=== PATIENT | male | born 1990 | race Caucasian/White ===

== ENCOUNTER 2017-09-09 23:10 | Emergency (ER) | payer SELFPAY ==
[2017-09-09 23:11] VITALS: BMI 26.4
[2017-09-09 23:36] VITALS: BP 130/91; PULSE 92; RESP 16; TEMP 98.2; O2SAT 100
[2017-09-09] MEDS ORDERED: Sodium Chloride 0.9% 1,000 ML IV STA (23:55)
--- NOTE | 2017-09-10 00:04 | ED PDOC ---
HPI: Abdomen Time Seen by Provider: 09/09/17 23:56 Chief Complaint (Nursing): Abdominal Pain History Per: Patient Additional Complaint(s): 27 yo M with PMH of Anxiety presents to ED c/o Left side abd/thorax squeezing pain, 8/10, since 3 days, radiated to back, worse with movement, no alleviating factors. 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 He reports previous similar event after a football game where hi was beaten. He doesnt take any medication for pain. He denies recent fever/N/V no other abdominal or chest pain, no sob, palpitations. Past Medical History Vital Signs: Last Vital Signs Temp 98.2 F 09/09/17 23:33 Pulse 92 H 09/09/17 23:33 Resp 16 09/09/17 23:33 BP 130/91 H 09/09/17 23:33 Pulse Ox 100 09/10/17 03:44 - Medical History PMH: Anxiety, Migraine Denies: Depression, Diabetes, Hepatitis, HIV, HTN, Chronic Kidney Disease, Seizures, Sexually Transmitted Disease - Family History Family History: States: No Known Family Hx - Immunization History Hx Tetanus Toxoid Vaccination: Yes - Home Medications Home Medications: Ambulatory Orders Medication Instructions Recorded Alprazolam [Xanax] 0.5 mg PO DAILY 05/24/15 Ciprofloxacin HCl [Cipro] 500 mg PO BID #20 tab 05/24/15 Metronidazole [Flagyl] 500 mg PO TID #30 tab 05/24/15 Cyclobenzaprine [Cyclobenzaprine 10 mg PO TID PRN #15 tab 09/10/17 HCl] - Allergies Allergies/Adverse Reactions: Allergies Allergy/AdvReac Type Severity Reaction Status Date / Time sulfamethoxazole Allergy RASH Verified 09/09/17 23:37 [From Bactrim] trimethoprim [From Bactrim] Allergy RASH Verified 09/09/17 23:37 Review of Systems ROS Statement: Except As Marked, All Systems Reviewed And Found Negative Physical Exam - Reviewed Nursing Documentation Reviewed: Yes Vital Signs Reviewed: Yes - Physical Exam Head Exam: Positive for: NORMAL INSPECTION Skin: Positive for: Normal Color, Warm, Dry Eye Exam: Positive for: EOMI, PERRL. Negative for: Nystagmus Neck: Positive for: Supple Cardiovascular/Chest: Positive for: Regular Rate, Rhythm, Other ( 8-9 ribs tenderness on palpation, no bruises or rash noted). Negative for: Murmur, Bradycardia, Tachycardia Respiratory: Positive for: Normal Breath Sounds. Negative for: Rales, Rhonchi, Wheezing Gastrointestinal/Abdominal: Positive for: Bowel Sounds, Soft. Negative for: Tenderness Back: Negative for: L CVA Tenderness, R CVA Tenderness Extremity: Positive for: Normal ROM. Negative for: Calf Tenderness Neurologic/Psych: Positive for: Alert, process stripper II-XII, Oriented - Laboratory Results Result Diagrams: 09/10/17 00:20 09/10/17 00:20 - ECG O2 Sat by Pulse Oximetry: 100 - Progress ED Course And Treament: CBC CMP Creatine phos troponin EKG CXR Toradol 15mg IV once. Reeval Reeval 01:40 Patient still with pain. Flexeril 10mg PO once Reeval 03:42 Patient feels much better, no pain at this time D/C home. Disposition - Clinical Impression Clinical Impression: Chest wall pain - Patient ED Disposition Is Patient to be Admitted: No - Disposition Disposition: Routine/Home Disposition Time: 03:44 Condition: IMPROVED Prescriptions: Cyclobenzaprine [Cyclobenzaprine HCl] 10 mg PO TID PRN #15 tab PRN Reason: Muscle Pain Instructions: Costochondritis, Chest Pain (DC), Costochondritis (DC) Forms: [facility] (Frisian) Print Language: KINYARWANDA - POA Present On Arrival: None
[2017-09-10 00:30] LABS: BASO # 0.1 K/uL (0.0-0.2); BASO % 0.8 % (0.0-2.0); EOS # 0.1 K/uL (0.0-0.7); EOS % 1.4 % (0.0-4.0); HEMOGLOBIN 14.9 g/dL (12.0-18.0); LYMPH # 2.5 K/uL (1.0-4.3); LYMPH % 27.8 % (20.0-40.0); MEAN CELL VOLUME 92.5 fl (80.0-94.0); MEAN CORPUSCULAR HGB CONC 34.6 g/dL (33.0-37.0); MEAN PLATELET VOLUME 8.8 fl (7.2-11.7); MONO # 0.5 K/uL (0.0-0.8); MONO % 5.4 % (0.0-10.0); NEUT # 5.9 K/uL (1.8-7.0); NEUT % 64.6 % (50.0-75.0); NRBC % 0.1 % (0.0-0.0); RBC 4.65 Mil/uL (4.40-5.90); RED CELL DISTRIBUTION WIDTH 13.3 % (11.5-14.5); WHITE BLOOD COUNT 9.2 K/uL (4.8-10.8)
[2017-09-10 00:41] LABS: ALB/GLOB RATIO 1.5 (1.0-2.1); ALBUMIN 4.4 g/dL (3.5-5.0); ALT/SGPT 46 U/L (21-72); AST/SGOT 27 U/L (17-59); BLOOD UREA NITROGEN 16 mg/dl (9-20); CALCIUM 9.4 mg/dL (8.4-10.2); GFR AFRICAN-AMERICAN > 60; GFR NON-AFRICAN AMERICAN > 60
--- NOTE | 2017-09-10 09:15 | RAD ---
HISTORY: pain COMPARISON: No prior. TECHNIQUE: Chest PA and lateral FINDINGS: LUNGS: No active pulmonary disease. PLEURA: No significant pleural effusion identified. No pneumothorax apparent. CARDIOVASCULAR: Normal. OSSEOUS STRUCTURES: No significant abnormalities. VISUALIZED UPPER ABDOMEN: Normal. OTHER FINDINGS: None. IMPRESSION: No acute cardiopulmonary disease appreciated.
== END 2017-09-10 04:16 | disposition home or self-care (01) ==
LOC: H.ER 23:10
DX: R07.89 Other chest pain (principal); F41.9 Anxiety disorder, unspecified
CPT/HCPCS: 71046; 80053; 82550; 84484; 85025; 96361; 96374; 99282; J1885; J7040

== ENCOUNTER 2018-02-03 12:41 | Emergency (ER) | payer SELFPAY ==
[2018-02-03 12:42] VITALS: BMI 26.4
[2018-02-03 12:52] VITALS: O2SAT 98
--- NOTE | 2018-02-03 13:18 | ED PDOC ---
HPI: Back Time Seen by Provider: 02/03/18 12:59 Chief Complaint (Nursing): Abdominal Pain Chief Complaint (Provider): Back Pain History Per: Patient History/Exam Limitations: no limitations Onset/Duration Of Symptoms: Days (x2) Current Symptoms Are (Timing): Still Present Additional Complaint(s): 27 year old male presents to the ED for evaluation of mid left sided back pain radiating to the front onset two days ago, which worsens when turning or with deep inspirations. 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 Otherwise, denies shortness of breath and cough. PMD: none provided Past Medical History Reviewed: Historical Data, Nursing Documentation, Vital Signs Vital Signs: Last Vital Signs Temp 99 F 02/03/18 12:48 Pulse 92 H 02/03/18 12:48 Resp 20 02/03/18 12:48 BP 118/74 02/03/18 12:48 Pulse Ox 98 02/03/18 12:48 - Medical History PMH: Anxiety, Back Problems, Migraine Denies: Depression, Diabetes, Hepatitis, HIV, HTN, Chronic Kidney Disease, Seizures, Sexually Transmitted Disease - Surgical History Surgical History: No Surg Hx - Family History Family History: States: Unknown Family Hx - Social History Current smoker - smoking cessation education provided: No Alcohol: Social Drugs: Denies - Immunization History Hx Tetanus Toxoid Vaccination: Yes - Home Medications Home Medications: Ambulatory Orders Medication Instructions Recorded Alprazolam [Xanax] 0.5 mg PO DAILY 05/24/15 Ciprofloxacin HCl [Cipro] 500 mg PO BID #20 tab 05/24/15 Metronidazole [Flagyl] 500 mg PO TID #30 tab 05/24/15 Cyclobenzaprine [Cyclobenzaprine 10 mg PO TID PRN #15 tab 09/10/17 HCl] Cyclobenzaprine [Cyclobenzaprine 10 mg PO TID #10 tab 02/03/18 HCl] Naproxen [Naprosyn] 500 mg PO Q12H #20 tab 02/03/18 - Allergies Allergies/Adverse Reactions: Allergies Allergy/AdvReac Type Severity Reaction Status Date / Time sulfamethoxazole Allergy RASH Verified 02/03/18 12:45 [From Bactrim] trimethoprim [From Bactrim] Allergy RASH Verified 02/03/18 12:45 Review of Systems ROS Statement: Except As Marked, All Systems Reviewed And Found Negative Respiratory: Negative for: Cough, Shortness of Breath Musculoskeletal: Positive for: Back Pain (mid left sided, radiating to the front , worse when turning and with deep inspirations) Physical Exam - Reviewed Nursing Documentation Reviewed: Yes Vital Signs Reviewed: Yes - Physical Exam Appears: Positive for: No Acute Distress Head Exam: Positive for: ATRAUMATIC, NORMOCEPHALIC Skin: Positive for: Normal Color, Warm, Dry. Negative for: Rash Eye Exam: Positive for: Normal appearance Neck: Positive for: Normal, Painless ROM Cardiovascular/Chest: Positive for: Regular Rate, Rhythm Respiratory: Positive for: Normal Breath Sounds. Negative for: Accessory Muscle Use, Wheezing, Respiratory Distress Gastrointestinal/Abdominal: Positive for: Normal Exam, Soft Back: Positive for: Other (Left para thoracic spasm and tenderness radiating along rib to front). Negative for: Vertebral Tenderness (or deformity) Extremity: Positive for: Normal ROM Neurologic/Psych: Positive for: Alert, Oriented (x3). Negative for: Motor/ Sensory Deficits - ECG O2 Sat by Pulse Oximetry: 98 (RA) Pulse Ox Interpretation: Normal Medical Decision Making Medical Decision Makin:20 Patient is stable for d/c with no further treatment in the ED at this time. Scribe Attestation: Documented by Marva Salcedo, acting as a scribe for Darryl Freeman MD. Provider Scribe Attestation: All medical record entries made by the Scribe were at my direction and personally dictated by me. I have reviewed the chart and agree that the record accurately reflects my personal performance of the history, physical exam, medical decision making, and the department course for this patient. I have also personally directed, reviewed, and agree with the discharge instructions and disposition. Disposition - Clinical Impression Clinical Impression: Radiculopathy - Patient ED Disposition Is Patient to be Admitted: No - Disposition Referrals: [facility] [Outside] Disposition: Routine/Home Disposition Time: 13:30 Condition: FAIR Prescriptions: Cyclobenzaprine [Cyclobenzaprine HCl] 10 mg PO TID #10 tab Naproxen [Naprosyn] 500 mg PO Q12H #20 tab Instructions: Radiculopathy Forms: [facility] (Tur[place] Islander)
[2018-02-03 13:23] VITALS: BP 128/78; PULSE 78; RESP 19; TEMP 97
== END 2018-02-03 13:40 | disposition home or self-care (01) ==
LOC: H.ER 12:41
DX: M54.10 Radiculopathy, site unspecified (principal)

== ENCOUNTER 2018-04-29 17:01 | Emergency (ER) | payer OTHER ==
[2018-04-29 17:01] VITALS: BMI 26.4
[2018-04-29 17:06] VITALS: BP 125/78; PULSE 73; RESP 16; TEMP 98.5; O2SAT 99
--- NOTE | 2018-04-29 17:19 | ED PDOC ---
HPI: Back Chief Complaint (Provider): Back Pain History Per: Patient History/Exam Limitations: no limitations Onset/Duration Of Symptoms: Days (x2) Current Symptoms Are (Timing): Still Present Previous Symptoms: Back Pain Additional Complaint(s): 27 y/o male presents to the ED for evaluation of low back pain x 2 days. Patient states he was at work 2 days ago when he lifted a heavy box injuring his mid and low back. He did not seek medical attention at time of injury 2 days but today went to [facility] for evaluation. Patient was told to come to ED by [facility] because his pain was so severe. Patient states he took aleve yesterday which did not help the pain. He was given toradol IM at [facility] prior to arrival and this did not help either. Patient denies radiation of pain to lower extremities and he denies bowel or bladder dysfunction. He shouldn't states he has had mild back pain on and off for the last couple of years but it has never been this severe. PMD: none <Carol Gracia - Last Filed: 04/29/18 19:17> <Mona Holder - Last Filed: 04/30/18 00:08> Time Seen by Provider: 04/29/18 17:10 Chief Complaint (Nursing): Back Pain Past Medical History Reviewed: Historical Data, Nursing Documentation, Vital Signs Vital Signs: Last Vital Signs Temp 98.5 F 04/29/18 17:03 Pulse 73 04/29/18 17:03 Resp 16 04/29/18 17:03 BP 125/78 04/29/18 17:03 Pulse Ox 99 04/29/18 17:03 - Medical History PMH: Anxiety, Back Problems, Migraine - Surgical History Surgical History: No Surg Hx - Family History Family History: States: No Known Family Hx - Living Arrangements Living Arrangements: With Family - Social History Current smoker - smoking cessation education provided: Yes Alcohol: None Drugs: Denies - Immunization History Hx Tetanus Toxoid Vaccination: Yes <Carol Gracia - Last Filed: 04/29/18 19:17> Vital Signs: Last Vital Signs Temp 98.5 F 04/29/18 17:03 Pulse 73 04/29/18 17:03 Resp 16 04/29/18 17:03 BP 125/78 04/29/18 17:03 Pulse Ox 99 04/29/18 20:27 <Mona Holder - Last Filed: 04/30/18 00:08> - Home Medications Home Medications: Ambulatory Orders Medication Instructions Recorded Alprazolam [Xanax] 0.5 mg PO DAILY 05/24/15 Ciprofloxacin HCl [Cipro] 500 mg PO BID #20 tab 05/24/15 Metronidazole [Flagyl] 500 mg PO TID #30 tab 05/24/15 Cyclobenzaprine [Cyclobenzaprine 10 mg PO TID PRN #15 tab 09/10/17 HCl] Cyclobenzaprine [Cyclobenzaprine 10 mg PO TID #10 tab 02/03/18 HCl] Naproxen [Naprosyn] 500 mg PO Q12H #20 tab 02/03/18 Nabumetone [Relafen] 500 mg PO BID #20 tab 04/29/18 RX: tiZANidine [Zanaflex] 4 mg PO Q8H PRN #20 tab 04/29/18 - Allergies Allergies/Adverse Reactions: Allergies Allergy/AdvReac Type Severity Reaction Status Date / Time sulfamethoxazole Allergy RASH Verified 02/03/18 12:45 [From Bactrim] trimethoprim [From Bactrim] Allergy RASH Verified 02/03/18 12:45 Supervising Attending Note - Attestation: I have personally seen and examined this patient.: No I have reviewed all pertinent clinical information: Yes <Mona Holder - Last Filed: 04/30/18 00:08> Review of Systems ROS Statement: Except As Marked, All Systems Reviewed And Found Negative Musculoskeletal: Positive for: Back Pain (mid and low) <Carol Gracia - Last Filed: 04/29/18 19:17> Physical Exam - Reviewed Nursing Documentation Reviewed: Yes Vital Signs Reviewed: Yes - Physical Exam Appears: Positive for: Non-toxic, Uncomfortable, In Acute Distress Head Exam: Positive for: ATRAUMATIC Skin: Positive for: Normal Color. Negative for: Pallor, Rash Eye Exam: Positive for: Normal appearance Neck: Positive for: Normal, Painless ROM Back: Positive for: Other (Mild tenderness along thoracic and lumbar spine with no sep off, patient is able to heel and toe walk) Extremity: Positive for: Normal ROM Neurologic/Psych: Positive for: Alert, Oriented (x3), Gait (steady). Negative for: Motor/Sensory Deficits <Carol Gracia - Last Filed: 04/29/18 19:17> - ECG O2 Sat by Pulse Oximetry: 99 (RA) Pulse Ox Interpretation: Normal - Other Rad CT thoracic and lumbar spine X-Ray: Read By Radiologist X-Ray Interpretation: see below <Carol Gracia - Last Filed: 04/29/18 19:17> Medical Decision Making Medical Decision Making: Time: 1718 Plan: -- CT Thoracic Spine w/o Contrast -- CT Lumbar Spine w/o Contrast -- Flexeril 10 mg PO - ordered but refused by patient, states it makes him feel too sedated. PO tylenol given instead. CT thoracic - no acute fracture or subluxation, no disc abnormalities CT lumbar - mild diffuse disc bulge L5-S1 with no impingement upon nerve root, no other acute finding Patient is aware of all diagnostic testing results. All questions answered. He has appt with ortho this coming Monday at [facility]. _ Scribe Attestation: Documented by Kam Ryan, acting as a scribe for Carol Gracia PA-C. Provider Scribe Attestation: All medical record entries made by the Scribe were at my direction and personally dictated by me. I have reviewed the chart and agree that the record accurately reflects my personal performance of the history, physical exam, medical decision making, and the department course for this patient. I have also personally directed, reviewed, and agree with the discharge instructions and disposition. <Carol Gracia - Last Filed: 04/29/18 19:17> Disposition - Patient ED Disposition Is Patient to be Admitted: No Counseled Patient/Family Regarding: Studies Performed, Diagnosis, Need For Followup, Rx Given - Disposition Disposition: Routine/Home Disposition Time: 19:03 <Carol Gracia - Last Filed: 04/29/18 19:17> <Mona Holder - Last Filed: 04/30/18 00:08> - Clinical Impression Clinical Impression: Back strain - Disposition Referrals: [facility] [Provider Group] Condition: STABLE Additional Instructions: Take rx meds as directed as needed for pain. Follow up with orthopedist as scheduled this coming Monday. Prescriptions: Nabumetone [Relafen] 500 mg PO BID #20 tab RX: tiZANidine [Zanaflex] 4 mg PO Q8H PRN #20 tab PRN Reason: Muscle Pain Instructions: Low Back Pain (DC), Muscle Strain (DC), Back Exercises Forms: [facility] (Greek)
--- NOTE | 2018-04-29 18:15 | CT ---
Date of service: 04/29/2018 PROCEDURE: CT Thoracic Spine without contrast HISTORY: severe low back pain COMPARISON: None available. TECHNIQUE: Axial computed tomography images were obtained of the thoracic spine without intravenous contrast. Coronal and sagittal reformatted images were created and reviewed. Radiation dose: Total exam DLP = 759.59 mGy-cm. This CT exam was performed using one or more of the following dose reduction techniques: Automated exposure control, adjustment of the mA and/or kV according to patient size, and/or use of iterative reconstruction technique. FINDINGS: VERTEBRAE: Unremarkable. No fracture. Normal alignment. DISCS/SPINAL CANAL/NEURAL FORAMINA: Within the limits of the CT technique, no disc herniation seen. No central canal or neural foraminal stenosis.. Multilevel narrowing of intervertebral disc is space is noted. PARASPINAL SOFT TISSUES: Unremarkable. OTHER FINDINGS: Unremarkable. IMPRESSION: No evidence of acute fracture or subluxation. No CT evidence of significant spinal or neural foraminal narrowing.
--- NOTE | 2018-04-30 16:02 | CT ---
Date of service: 04/29/2018 PROCEDURE: CT Lumbar Spine without contrast HISTORY: severe lower back pain COMPARISON: None available. TECHNIQUE: Axial computed tomography images were obtained of the lumbar spine without the use of intravenous contrast. Coronal and sagittal reformatted images were created and reviewed. Radiation dose: Total exam DLP = mGy-cm. This CT exam was performed using one or more of the following dose reduction techniques: Automated exposure control, adjustment of the mA and/or kV according to patient size, and/or use of iterative reconstruction technique. FINDINGS: VERTEBRAE: Unremarkable. No fracture. Normal alignment. DISCS/SPINAL CANAL/NEURAL FORAMINA: L1-2: Unremarkable. L2-3: Unremarkable. L3-4: Unremarkable. L4-5: Unremarkable. L5-S1: Disc bulge with thecal sac indentation. PARASPINAL SOFT TISSUES: Unremarkable. OTHER FINDINGS: None. IMPRESSION: L5-S1: Disc bulge with thecal sac indentation.
== END 2018-04-29 19:38 | disposition home or self-care (01) ==
LOC: H.ER 17:01
DX: S39.012A Strain of muscle, fascia and tendon of lower back, initial encounter (principal); X50.0XXA Overexertion from strenuous movement or load, initial encounter; Y99.0 Civilian activity done for income or pay

== ENCOUNTER 2018-11-26 18:19 | Emergency (ER) | payer MEDICAID, OTHER ==
[2018-11-26 18:19] VITALS: BMI 26.4
[2018-11-26 18:49] VITALS: BP 118/72; TEMP 98.7; O2SAT 100
--- NOTE | 2018-11-26 19:58 | ED PDOC ---
HPI: Dental Pain/Injury Time Seen by Provider: 11/26/18 19:08 Chief Complaint (Nursing): Dental Pain Chief Complaint (Provider): dental pain History Per: Patient History/Exam Limitations: no limitations Onset/Duration Of Symptoms: Days (2x weeks) Current Symptoms Are (Timing): Still Present Severity: Moderate Additional Complaint(s): 28 year old male with no past medical history presents to the ED for an evaluation of left lower dental pain increasing for the past 2x weeks. Patient states that 3x months ago, he chipped on of his molars, a few weeks later when eating something he chipped it again. Patient states that he did not have pain until 2x weeks ago, and that the pain has been increasing and is now unbearable, radiating to the entire jaw. Patient reports having associated left sided facial swelling. Patient reports taking motrin 800 mg with no relief. Patient denies having fevers. PMD: None provided Past Medical History Reviewed: Historical Data, Nursing Documentation, Vital Signs Vital Signs: Last Vital Signs Temp 98.7 F 11/26/18 18:46 Pulse 96 H 11/26/18 18:46 Resp 16 11/26/18 18:46 BP 118/72 11/26/18 18:46 Pulse Ox 100 11/26/18 18:46 DAYANA Report Viewed: Yes Primary Care Provider: FAMILY PROVIDER,NO - Medical History PMH: Anxiety, Back Problems, Migraine Denies: Depression, Diabetes, Hepatitis, HIV, HTN, Chronic Kidney Disease, Seizures, Sexually Transmitted Disease - Surgical History Other surgeries: left rotator cuff surgery - Family History Family History: States: No Known Family Hx - Immunization History Hx Tetanus Toxoid Vaccination: Yes - Home Medications Home Medications: Ambulatory Orders Medication Instructions Recorded Alprazolam [Xanax] 0.5 mg PO DAILY 05/24/15 Ciprofloxacin HCl [Cipro] 500 mg PO BID #20 tab 05/24/15 Metronidazole [Flagyl] 500 mg PO TID #30 tab 05/24/15 Cyclobenzaprine [Cyclobenzaprine 10 mg PO TID PRN #15 tab 09/10/17 HCl] Cyclobenzaprine [Cyclobenzaprine 10 mg PO TID #10 tab 02/03/18 HCl] Naproxen [Naprosyn] 500 mg PO Q12H #20 tab 02/03/18 Nabumetone [Relafen] 500 mg PO BID #20 tab 04/29/18 tiZANidine [Zanaflex] 4 mg PO Q8H PRN #20 tab 04/29/18 Amoxicillin/Clavulanate [Augmentin 1 tab PO Q12H #28 tab 11/26/18 875 MG-125 MG] Ibuprofen [Motrin Tab] 800 mg PO Q6H PRN #60 tab 11/26/18 - Allergies Allergies/Adverse Reactions: Allergies Allergy/AdvReac Type Severity Reaction Status Date / Time sulfamethoxazole Allergy RASH Verified 11/26/18 18:46 [From Bactrim] trimethoprim [From Bactrim] Allergy RASH Verified 11/26/18 18:46 Review of Systems ROS Statement: Except As Marked, All Systems Reviewed And Found Negative Constitutional: Negative for: Fever, Chills, Other (bodyaches) ENT: Positive for: Other (left lower dental pain radiates to jaw, left sided facial swelling) Physical Exam - Reviewed Nursing Documentation Reviewed: Yes Vital Signs Reviewed: Yes - Physical Exam Appears: Positive for: Well, Non-toxic, No Acute Distress Head Exam: Positive for: ATRAUMATIC, NORMOCEPHALIC Skin: Positive for: Normal Color, Warm, Dry Eye Exam: Positive for: Normal appearance ENT: Positive for: Other (left sided facial swelling, very tender to touch. (-) redness. poor dentition, chipped tooth to left lower side by where patient reports having pain) Neurological/Psych: Positive for: Awake, Alert, Oriented (3x) - Laboratory Results Result Diagrams: 11/26/18 19:50 11/26/18 19:50 - ECG O2 Sat by Pulse Oximetry: 100 (RA) Pulse Ox Interpretation: Normal Medical Decision Making Medical Decision Makin:08 Initial impression: 28 year old male with dental pain Initial plan: * CT maxillofacial w/ contrast to rule out abscess * BMP * CBC with diff * toradol 30 mg IVP * reevaluation 21:31 CT maxillofacial read and reviewed by radiologist FINDINGS: BONES: No acute fracture or aggressive appearing osseous lesion. The mandible is intact. SOFT TISSUES: There is mild left maxillary and diffuse facial soft tissue swelling noted consistent with cellulitis. No subcutaneous abscess formation is detected. SINUSES: The sinuses are clear. ORBITS: The orbits are normal. No retrobulbar hematoma or mass. IMPRESSION: Left maxillary and diffuse facial cellulitis noted. No subcutaneous abscess detected. Clinical findings discussed with patient. Patient started on augmentin in the ED. Instructed to follow-up at dental clinic tomorrow (information given). patient states pain has not improved. Given tramadol prior to arrival. pmprx checked no prior opioid scripts filled. Rx given for augementin and motrin. Patient states understanding and agrees with plan. ScribeAttestation: Documented byShannan Garland, acting as a scribe for Belkys Foster APN. Provider ScribeAttestation: All medical record entries made by the Scribe were at my direction and personally dictated by me. I have reviewed the chart and agree that the record accurately reflects my personal performance of the history, physical exam, medical decision making, and the department course for this patient. I have also personally directed, reviewed, and agree with the discharge instructions and disposition. Disposition - Clinical Impression Clinical Impression: Pain, dental, Facial cellulitis - Patient ED Disposition Is Patient to be Admitted: No Counseled Patient/Family Regarding: Diagnosis, Need For Followup, Rx Given - Disposition Disposition: Routine/Home Disposition Time: 21:45 Condition: GOOD Prescriptions: Amoxicillin/Clavulanate [Augmentin 875 MG-125 MG] 1 tab PO Q12H #28 tab Ibuprofen [Motrin Tab] 800 mg PO Q6H PRN #60 tab PRN Reason: Pain, Moderate (4-7) Instructions: Cellulitis (Skin Infection), Adult (DC), Dental Pain (DC) Forms: [facility] (Tamazight) Print Language: [place] ISLANDER - POA Present On Arrival: None
[2018-11-26 20:09] LABS: BASO # 0.1 K/uL (0.0-0.2); BASO % 0.5 % (0.0-2.0); EOS # 0.1 K/uL (0.0-0.7); EOS % 0.7 % (0.0-4.0); HEMOGLOBIN 15.5 g/dL (12.0-18.0); LYMPH # 2.4 K/uL (1.0-4.3); LYMPH % 18.2 % (20.0-40.0); MEAN CELL VOLUME 93.3 fl (80.0-94.0); MEAN CORPUSCULAR HEMOGLOBIN 31.3 pg (27.0-31.0); MEAN CORPUSCULAR HGB CONC 33.6 g/dL (33.0-37.0); MONO # 0.7 K/uL (0.0-0.8); MONO % 5.3 % (0.0-10.0); NEUT # 9.8 K/uL (1.8-7.0); NEUT % 75.3 % (50.0-75.0); NRBC % 0.1 % (0.0-0.0); RBC 4.94 Mil/uL (4.40-5.90); RED CELL DISTRIBUTION WIDTH 13.1 % (11.5-14.5); WHITE BLOOD COUNT 13.1 K/uL (4.8-10.8)
[2018-11-26] MEDS ORDERED: Sodium Chloride 0.9% 50 ML IV ONE (20:21)
[2018-11-26] MEDS ORDERED: Iohexol 300 100 ML IJ ONE (20:21)
[2018-11-26 20:31] LABS: BLOOD UREA NITROGEN 15 mg/dl (9-20); CALCIUM 9.7 mg/dL (8.4-10.2); GFR NON-AFRICAN AMERICAN > 60
[2018-11-26] MEDS ORDERED: Amoxicillin-Clav 875-125 mg Tab PO STA (22:01)
[2018-11-26] MEDS ORDERED: Amoxicillin-Clav 875-125 mg Tab PO ONE (22:05)
[2018-11-26 22:15] VITALS: PULSE 80; RESP 18
--- NOTE | 2018-11-27 13:08 | CT ---
Date of service: 11/26/2018 PROCEDURE: CT MAXILLOFACIAL BONES WITH CONTRAST HISTORY: facial swelling, r/o abscess COMPARISON: None. TECHNIQUE: Contiguous axial CT images of the maxillofacial bones were obtained following administration of IV contrast. Coronal and sagittal reformats were generated. Intravenous contrast Dose: Omnipaque 300, 90 cc Radiation dose: Total exam DLP = 831.34 mGy-cm. This CT exam was performed using one or more of the following dose reduction techniques: Automated exposure control, adjustment of the mA and/or kV according to patient size, and/or use of iterative reconstruction technique. FINDINGS: Mild left maxilla and mandibular dermal and subcutaneous fatty reactive changes are identified without emphysematous component, retained radiodense foreign body or abscess, compatible with cellulitis. Remaining facial soft tissues are unremarkable otherwise. NASAL BONES: Unremarkable. ORBITS: Unremarkable. PARANASAL SINUSES/ MASTOIDS: Clear. MAXILLA: Unremarkable. MANDIBLE/ TEMPOROMANDIBULAR JOINTS: Unremarkable. SKULL BASE: Unremarkable. TEMPORAL BONES: Middle ears and mastoid grossly unremarkable. OTHER FINDINGS: Incidental multifocal caries is identified bilaterally. IMPRESSION: Mid to inferior left facial cellulitis at the cheek and mandibular dermis/subcutaneous fat. No abscess or emphysema related. No suspicious bony findings. Incidental multifocal dental disease as discussed above. Preliminary report provided by Rahel, 11/26/2018, 9:31 p.m..
== END 2018-11-26 21:46 | disposition home or self-care (01) ==
LOC: H.ER 18:19
DX: L03.211 Cellulitis of face (principal); K08.89 Other specified disorders of teeth and supporting structures; Z88.1 Allergy status to other antibiotic agents; Z88.2 Allergy status to sulfonamides; F41.9 Anxiety disorder, unspecified
CPT/HCPCS: 70488; 80048; 85025; 96374; 99283; J1885; Q9967